=== PATIENT | male | born 1940 | race Caucasian/White ===

== ENCOUNTER 2024-09-11 10:02 | Day surgery (SDC) | payer MEDICARE, MEDICAID ==
[~2024-09-11] VITALS: Ht 170.2 cm; Wt 79.4 kg
[~2024-09-11 10:02] MED LIST: ANOR1AER INH; ASPI81CH33 PO; ATOR80TA59 PO; ATROPINE SULFATE 1% OPHTH SOLN 2ML BTL OD SCH; CARB25TA9 PO; CULTCAP2 PO; CYAN-11 PO; DAPS100T22 PO; DOXY100C3 PO; DRIS50003 PO; ELIQ5TAB PO; FOLI1TAB11 PO; KETO0.5S4 OD; KETO5DRO27 OD; LIDOCAINE 3.5 % 1ML OPHTH TOPICAL GEL OU ONE; LOVE0.6I2 SC; MELA5TAB21 PO; METH2.5T48 PO; METO1TAB87 PO; OCUF0.25 OD; OFLOXACIN 0.3 % (OCUFLOX) OPTH SOL 5ML OD ONE; PHENYLEPHRINE 10% OPHTH SOL 5ML OD PRN; PHENYLEPHRINE 2.5% OPHTH SOL 2ML OD SCH; PREDOPD OD; STIO1AER INH; TROPICAMIDE 1% OPHTH SOLN 15ML OD SCH
[2024-09-11] MEDS ORDERED: MIDAZOLAM INJ 2MG/2ML VIAL As Ordered ONE (10:24)
[2024-09-11] MEDS ORDERED: fentaNYL 100 MCG/2 ML INJECTION As Ordered ONE (10:25)
[2024-09-11] MEDS: BSS IRRIG/VANCO(10MG)/TOBRA(5MG)/EPINEPH(1:1000-0.5CC)500ML BAG-ORONLY As Ordered ONE (12:54)
[2024-09-11] MEDS: LIDOCAINE 1% SDV 5ML VIAL As Ordered ONE (12:54)
[2024-09-11] MEDS: CEFUROXIME 1MG/0.1ML INTRACAMERAL INJ As Ordered ONE (12:54)
[2024-09-11 13:15] VITALS: BP 130/83; TEMP 97.8; O2SAT 97
== END 2024-09-11 13:40 | disposition home or self-care (01) ==
LOC: M SDC 10:02
PROVIDERS: ATTEND Ophthalmology
DX: H25.9 Unspecified age-related cataract (principal); I48.91 Unspecified atrial fibrillation; E11.9 Type 2 diabetes mellitus without complications; Z86.73 Personal history of transient ischemic attack (TIA), and cerebral infarction without residual deficits; Z74.01 Bed confinement status; Z88.8 Allergy status to other drugs, medicaments and biological substances; Z91.040 Latex allergy status; Z79.899 Other long term (current) drug therapy
CPT/HCPCS: 66984; J0697; J2250; J3010; V2632

== ENCOUNTER → 2024-12-12 | Day surgery (SDC) | payer MEDICARE, MEDICAID ==
[~2024-12-12] VITALS: Ht 165.1 cm; Wt 81.2 kg
[~2024-12-12] MED LIST changes: -ATROPINE SULFATE 1% OPHTH SOLN 2ML BTL OD SCH; +BSS IRRIG/VANCO(10MG)/TOBRA(5MG)/EPINEPH(1:1000-0.5CC)500ML BAG-ORONLY As Ordered ONE; +CEFUROXIME 1MG/0.1ML INTRACAMERAL INJ As Ordered ONE; +CYCLOPENTOLATE 1% OPHTH SOLN 2ML BTL OS SCH; +ERYT5OIN25 OU; +FAMO20TA PO; +LACT20EL PO; +LIDOCAINE 1% SDV 5ML VIAL As Ordered ONE; +METO25TA4 PO; -OFLOXACIN 0.3 % (OCUFLOX) OPTH SOL 5ML OD ONE; +OFLOXACIN 0.3 % (OCUFLOX) OPTH SOL 5ML OS ONE; -PHENYLEPHRINE 10% OPHTH SOL 5ML OD PRN; +PHENYLEPHRINE 10% OPHTH SOL 5ML OS PRN; -PHENYLEPHRINE 2.5% OPHTH SOL 2ML OD SCH; +PHENYLEPHRINE 2.5% OPHTH SOL 2ML OS SCH; -TROPICAMIDE 1% OPHTH SOLN 15ML OD SCH; +TROPICAMIDE 1% OPHTH SOLN 15ML OS SCH; +drisdol PO
== END | disposition home or self-care (01) ==
LOC: M SDC 09:13
PROVIDERS: ATTEND Ophthalmology
DX: H25.12 Age-related nuclear cataract, left eye (principal); Z53.09 Procedure and treatment not carried out because of other contraindication

== ENCOUNTER 2024-12-26 06:17 | Day surgery (SDC) | payer MEDICARE, MEDICAID ==
[~2024-12-26] VITALS: Ht 165.1 cm; Wt 80.6 kg
[~2024-12-26 06:17] MED LIST changes: +ANOR1AER; -BSS IRRIG/VANCO(10MG)/TOBRA(5MG)/EPINEPH(1:1000-0.5CC)500ML BAG-ORONLY As Ordered ONE; -CEFUROXIME 1MG/0.1ML INTRACAMERAL INJ As Ordered ONE; -CYCLOPENTOLATE 1% OPHTH SOLN 2ML BTL OS SCH; +ERGO500029 PO; -LIDOCAINE 1% SDV 5ML VIAL As Ordered ONE; -LIDOCAINE 3.5 % 1ML OPHTH TOPICAL GEL OU ONE; +MECL-86 PO; +MULTTAB61 PO; -OFLOXACIN 0.3 % (OCUFLOX) OPTH SOL 5ML OS ONE; -PHENYLEPHRINE 2.5% OPHTH SOL 2ML OS SCH; +PRED10TA2 PO; -TROPICAMIDE 1% OPHTH SOLN 15ML OS SCH
[2024-12-26] MEDS: PHENYLEPHRINE 2.5% OPHTH SOL 2ML OS SCH (06:55)
[2024-12-26] MEDS: TROPICAMIDE 1% OPHTH SOLN 15ML OS SCH (06:55)
[2024-12-26] MEDS: CYCLOPENTOLATE 1% OPHTH SOLN 2ML BTL OS SCH (06:55)
[2024-12-26] MEDS: LIDOCAINE 3.5 % 1ML OPHTH TOPICAL GEL OU ONE (06:56)
[2024-12-26] MEDS: OFLOXACIN 0.3 % (OCUFLOX) OPTH SOL 5ML OS ONE (06:56)
[2024-12-26] MEDS ORDERED: MIDAZOLAM INJ 2MG/2ML VIAL As Ordered ONE (07:16)
[2024-12-26] MEDS ORDERED: fentaNYL 100 MCG/2 ML INJECTION As Ordered ONE (07:16)
[2024-12-26] MEDS: LIDOCAINE 1% SDV 5ML VIAL As Ordered ONE (07:44)
[2024-12-26] MEDS: CEFUROXIME 1MG/0.1ML INTRACAMERAL INJ As Ordered ONE (07:45)
[2024-12-26] MEDS: BSS IRRIG/VANCO(10MG)/TOBRA(5MG)/EPINEPH(1:1000-0.5CC)500ML BAG-ORONLY As Ordered ONE (07:45)
[2024-12-26 08:00] VITALS: BP 153/73; TEMP 97.2; O2SAT 96
== END 2024-12-26 08:39 | disposition home or self-care (01) ==
LOC: M SDC 06:17
PROVIDERS: ATTEND Ophthalmology
DX: H25.12 Age-related nuclear cataract, left eye (principal); I48.91 Unspecified atrial fibrillation; I50.9 Heart failure, unspecified; E11.9 Type 2 diabetes mellitus without complications; Z86.73 Personal history of transient ischemic attack (TIA), and cerebral infarction without residual deficits; Z88.8 Allergy status to other drugs, medicaments and biological substances; Z91.040 Latex allergy status; Z79.899 Other long term (current) drug therapy; Z87.891 Personal history of nicotine dependence; Z98.41 Cataract extraction status, right eye
CPT/HCPCS: 66984; J0697; J2250; J3010; V2632